=== PATIENT | female | born 1930 | race Two or more races ===

== ENCOUNTER → 2017-12-08 | Emergency (ER) | payer OTHER ==
[~2017-12-08] VITALS: Ht 162.6 cm; Wt 53.5 kg
[~2017-12-08] MED LIST: COZAAR50 MG; DICY20TA; NORVASC5 MG; PROTONIX20 MG
== END | disposition home or self-care (01) ==
LOC: ER 11:16 → EDBD 11:46
DX: G25.89 Other specified extrapyramidal and movement disorders (principal)